=== PATIENT | male | born 1950 | race Caucasian/White ===

== ENCOUNTER 2021-05-16 19:33 | Emergency (ER) | payer MEDICARE, BC ==
[2021-05-16] MEDS ORDERED: Sodium Chloride 0.9% 10 ML Syringe FLUSH PRN (19:36)
--- NOTE | 2021-05-16 19:42 | EDM.PDOC ---
ED HPI GENERAL MEDICAL PROBLEM - General Chief Complaint: Neuro Symptoms/Deficits Stated Complaint: [facility] Time Seen by Provider: 05/16/21 19:36 Source of Information: Reports: EMS History Limitations: Reports: Altered Mental Status - History of Present Illness INITIAL COMMENTS - FREE TEXT/NARRATIVE: The patient presents by [facility] for a stroke. His last time known well was 6:30pm [place] time. He just got home from work and a neighbor noticed him pass out for a short time. He got up and walked into his house and then he was confused and could not move the right side of his right arm and leg. The weakness in his arm and leg have improved some. He is still confused. Onset: Sudden Duration: Hour(s): (1) Severity: Moderate Improves with: Reports: None Worsens with: Reports: None Associated Symptoms: Reports: No Other Symptoms - Related Data Allergies Allergy/AdvReac Type Severity Reaction Status Date / Time Unable to Assess Allergy Unverified 05/16/21 19:51 ED ROS GENERAL - Review of Systems Review Of Systems: Unable To Obtain Reason Not Obtained: Patient is not talking ED EXAM, NEURO - Physical Exam Exam: See Below Exam Limited By: Altered Mental Status General Appearance: Alert, Other (patient is not talking) Ears: Normal External Exam Nose: Normal Inspection Head Exam: Atraumatic, Normocephalic Neck: Normal Inspection, Supple, Non-Tender Respiratory/Chest: No Respiratory Distress, Lungs Clear, Normal Breath Sounds Cardiovascular: Regular Rate, Rhythm, No Edema, No Murmur GI/Abdominal: Soft, Non-Tender, No Organomegaly, No Mass Neurological: Alert, Other (mild weakness to his right arm and right leg. The patient will not answer my questoins.) #1 Interpretation EKG Date: 05/16/21 Time: 19:42 Rhythm: A-Fib Rate (Beats/Min): 57 [place]: Normal P-Wave: Absent QRS: Normal ST-T: Normal QT: Normal Course - Vital Signs Last Recorded V/S: Last Vital Signs Temp 96.8 F L 05/16/21 19:46 Pulse 53 L 05/16/21 19:46 Resp 17 05/16/21 19:46 BP 137/98 H 05/16/21 19:46 Pulse Ox 96 05/16/21 19:46 - Orders/Labs/Meds Orders: Active Orders 24 hr Category Date Time Status Cardiac Monitoring [RC] . DIRECTED Care 05/16/21 19:36 Active Peripheral IV Care [RC] . DIRECTED Care 05/16/21 19:36 Active Sodium Chloride 0.9% [Saline Flush] Med 05/16/21 19:36 Active 10 ml FLUSH ASDIRECTED PRN Peripheral IV Insertion Adult [OM.PC] Stat Oth 05/16/21 19:36 Ordered Medication Orders Sodium Chloride (Sodium Chloride 0.9% 10 Ml Syringe) 10 ml FLUSH ASDIRECTED PRN PRN Reason: Keep Vein Open Last Admin: 05/16/21 19:46 Dose: 10 ml Documented by: MONA Labs: Laboratory Tests 05/16/21 05/16/21 05/16/21 Range/Units 19:48 19:48 19:48 WBC 7.74 (4.23-9.07) K/mm3 RBC 4.69 (4.63-6.08) M/mm3 Hgb 14.3 (13.7-17.5) gm/dl Hct 43.5 (40.1-51.0) % MCV 92.8 H (79.0-92.2) fl MCH 30.5 (25.7-32.2) pg MCHC 32.9 (32.2-35.5) g/dl RDW Std Deviation 45.1 H (35.1-43.9) fL Plt Count 165 (163-337) K/mm3 MPV 10.0 (9.4-12.3) fl Neut % (Auto) 42.2 (34.0-67.9) % Lymph % (Auto) 42.9 (21.8-53.1) % [place] % (Auto) 9.8 (5.3-12.2) % Eos % (Auto) 4.5 (0.8-7.0) Baso % (Auto) 0.5 (0.1-1.2) % Neut # (Auto) 3.26 (1.78-5.38) K/mm3 Lymph # (Auto) 3.32 (1.32-3.57) K/mm3 [place] # (Auto) 0.76 (0.30-0.82) K/mm3 Eos # (Auto) 0.35 (0.04-0.54) K/mm3 Baso # (Auto) 0.04 (0.01-0.08) K/mm3 Manual Slide Review PT 11.4 (9.7-12.0) SECONDS INR 1.07 APTT 27.8 (21.7-31.4) SECONDS Sodium 147 H (136-145) mEq/L Potassium 3.9 (3.5-5.1) mEq/L Chloride 110 H (98-107) mEq/L Carbon Dioxide 24 (21-32) mEq/L Anion Gap 16.9 H (5-15) BUN 21 H (7-18) mg/dL Creatinine 1.4 H (0.7-1.3) mg/dL Est Cr Clr Drug Dosing 53.89 mL/min Estimated GFR (MDRD) 50 (>60) mL/min BUN/Creatinine Ratio 15.0 (14-18) Glucose 133 H (70-99) mg/dL Calcium 8.3 L (8.5-10.1) mg/dL Total Bilirubin 0.4 (0.2-1.0) mg/dL AST 16 (15-37) U/L ALT 22 (16-63) U/L Alkaline Phosphatase 56 (46-116) U/L Troponin I < 0.017 (0.00-0.056) ng/mL Total Protein 6.7 (6.4-8.2) g/dl Albumin 3.4 (3.4-5.0) g/dl Globulin 3.3 gm/dL Albumin/Globulin Ratio 1.0 (1-2) SARS-CoV-2 RNA (YVONNE) (NEGATIVE) 05/16/21 Range/Units 19:55 WBC (4.23-9.07) K/mm3 RBC (4.63-6.08) M/mm3 Hgb (13.7-17.5) gm/dl Hct (40.1-51.0) % MCV (79.0-92.2) fl MCH (25.7-32.2) pg MCHC (32.2-35.5) g/dl RDW Std Deviation (35.1-43.9) fL Plt Count (163-337) K/mm3 MPV (9.4-12.3) fl Neut % (Auto) (34.0-67.9) % Lymph % (Auto) (21.8-53.1) % [place] % (Auto) (5.3-12.2) % Eos % (Auto) (0.8-7.0) Baso % (Auto) (0.1-1.2) % Neut # (Auto) (1.78-5.38) K/mm3 Lymph # (Auto) (1.32-3.57) K/mm3 [place] # (Auto) (0.30-0.82) K/mm3 Eos # (Auto) (0.04-0.54) K/mm3 Baso # (Auto) (0.01-0.08) K/mm3 Manual Slide Review PT (9.7-12.0) SECONDS INR APTT (21.7-31.4) SECONDS Sodium (136-145) mEq/L Potassium (3.5-5.1) mEq/L Chloride (98-107) mEq/L Carbon Dioxide (21-32) mEq/L Anion Gap (5-15) BUN (7-18) mg/dL Creatinine (0.7-1.3) mg/dL Est Cr Clr Drug Dosing mL/min Estimated GFR (MDRD) (>60) mL/min BUN/Creatinine Ratio (14-18) Glucose (70-99) mg/dL Calcium (8.5-10.1) mg/dL Total Bilirubin (0.2-1.0) mg/dL AST (15-37) U/L ALT (16-63) U/L Alkaline Phosphatase (46-116) U/L Troponin I (0.00-0.056) ng/mL Total Protein (6.4-8.2) g/dl Albumin (3.4-5.0) g/dl Globulin gm/dL Albumin/Globulin Ratio (1-2) SARS-CoV-2 RNA (YVONNE) Negative (NEGATIVE) Meds: Medications Generic Name Dose Route Start Last Admin Trade Name Freq PRN Reason Stop Dose Admin Sodium Chloride 10 ml 05/16/21 19:36 05/16/21 19:46 Sodium Chloride 0.9% 10 Ml Syringe FLUSH 10 ml ASDIRECTED PRN Administration Keep Vein Open Discontinued Medications Generic Name Dose Route Start Last Admin Trade Name Freq PRN Reason Stop Dose Admin Alteplase, Recombinant Confirm 05/16/21 20:08 Alteplase 100 Mg Vial Administered 05/16/21 20:09 Dose 100 mg .ROUTE .STK-MED ONE Ondansetron HCl 4 mg 05/16/21 20:37 05/16/21 20:43 Ondansetron 4 Mg/2 Ml Sdv IVPUSH 05/16/21 20:38 4 mg ONETIME ONE Administration - Re-Assessments/Exams Free Text/Narrative Re-Assessment/Exam: 05/16/21 19:41 A stroke alert was called and I met the patient in the room. His last time known well was 18:30 [place] time. I have ordered a CT of his head, EKG and labs. 05/16/21 20:14 His EKG shows atrial fibrillation. I do not see that he has a history of atrial fibrillation. His CT shows nothing acute. 05/16/21 20:37 I was able to contact his brother and he knows the patient is on some blood pressure medication but not any blood thinners. The patient has no contra indications for TPA so I have ordered the bolus and drip. I called [facility] and [facility] and both hospitals can not take him. I called [facility] in [place] and talked to the neurologist and he accepted the patient. We will need to fly him to [place]. 05/16/21 21:03 His CBC looks good. His PT, INR and PTT are normal. His Na was a little elevated at 147. His creatinine was elevated at 1.4. His troponin is negative. He is COVID negative. His daughter Feli Snowden called and she did not think he was on blood thinners. She wanted to be notified of any changes and the next steps in his care. She is in [place] and she will be traveling up to [place] tomorrow. Her number is . Departure - Departure Time of Disposition: 21:10 Disposition: DC/Tfer to Acute Hospital 02 Condition: Serious Clinical Impression: Cerebrovascular accident (CVA) Qualifiers: CVA mechanism: unspecified Qualified Code(s): I63.9 - Cerebral infarction, unspecified - Discharge Information Forms: ED Department Discharge Sepsis Event Note (ED) - Focused Exam Vital Signs: Vital Signs Temp Pulse Resp BP Pulse Ox 05/16/21 19:46 96.8 F L 53 L 17 137/98 H 96 - My Orders Last 24 Hours: My Active Orders 05/16/21 19:36 Cardiac Monitoring [RC] . DIRECTED Peripheral IV Care [RC] . DIRECTED Sodium Chloride 0.9% [Saline Flush] 10 ml FLUSH ASDIRECTED PRN Peripheral IV Insertion Adult [OM.PC] Stat - Assessment/Plan Last 24 Hours: My Active Orders 05/16/21 19:36 Cardiac Monitoring [RC] . DIRECTED Peripheral IV Care [RC] . DIRECTED Sodium Chloride 0.9% [Saline Flush] 10 ml FLUSH ASDIRECTED PRN Peripheral IV Insertion Adult [OM.PC] Stat
--- NOTE | 2021-05-16 20:01 | CT ---
Head CT Technique: Multiple axial sections through the brain were obtained. Intravenous contrast was not utilized. Reconstructed coronal and sagittal images were obtained. Findings: Ventricles along with basal cisterns and sulci over the convexities appear within normal limits for the patient's age. No abnormal parenchymal densities are seen. No evidence of intracranial hemorrhage is noted. No midline shift or mass-effect is seen. Mild mucosal thickening is seen within the ethmoid sinuses. Visualized mastoid sinuses are clear. No acute calvarial abnormality is seen. Impression: 1. Nothing acute is seen on noncontrast head CT study. 2. If patient's symptoms warrant further evaluation, MRI study could then be considered. Diagnostic code #1
[2021-05-16] MEDS ORDERED: Ondansetron 4 MG/2 ML SDV IVPUSH ONE (20:37)
== END 2021-05-16 22:41 ==
LOC: JD.ED 19:33
DX: I63.9 Cerebral infarction, unspecified (principal); Z20.822 Contact with and (suspected) exposure to COVID-19
CPT/HCPCS: 36415; 70450; 80053; 84484; 85025; 85610; 85730; 93005; 96374; 99285; J2405; U0002; 93010